=== PATIENT | male | born 1990 | race African-American/Black ===

== ENCOUNTER 2020-08-10 16:37 | Emergency (ER) | payer OTHER, MEDICAID ==
[~2020-08-10] VITALS: Ht 175.3 cm; Wt 70.4 kg
[2020-08-10] MEDS ORDERED: IBUPROFEN 200 MG TABLET. PO ONE (17:30)
[2020-08-10] MEDS ORDERED: IBUP-1007 PO (17:30)
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
[2020-08-10 17:32] VITALS: BP 120/65
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
[2020-08-11] MEDS ORDERED: METH-38 PO (00:23)
== END 2020-08-10 18:32 | disposition home or self-care (01) ==
LOC: ER 16:37
DX: G89.11 Acute pain due to trauma (principal); M54.5 Low back pain; M54.2 Cervicalgia; Z98.890 Other specified postprocedural states; Z87.891 Personal history of nicotine dependence; V79.9XXA Bus occupant (driver) (passenger) injured in unspecified traffic accident, initial encounter; Y93.89 Activity, other specified; Y92.413 State road as the place of occurrence of the external cause; Y99.8 Other external cause status
CPT/HCPCS: 72128; 72131; 99285

== ENCOUNTER 2020-08-31 18:08 | Inpatient (IN) | payer SELFPAY ==
[~2020-08-31] VITALS: Ht 175.3 cm; Wt 68.0 kg
[~2020-08-31 18:08] MED LIST: IBUP-1007 PO; METH-38 PO
[2020-08-31 20:26] LABS: BASO % 0 % (0-3); EOS % 0 % (0-3); HEMATOCRIT 50.5 % (39.0-53.0); HEMOGLOBIN 17.6 g/dL (13.0-17.5); LYMPH % 9 % (24-48); MEAN CORPUSCULAR HEMOGLOBIN 32 pg (25-35); MEAN CORPUSCULAR HGB CONC 35 g/dL (31-37); MEAN CORPUSCULAR VOLUME 91 fL (79-100); MONO % 17 % (0-9); NEUT # 8.7 x10^3/uL (1.8-7.7); NEUT % 74 % (31-73); PLATELET COUNT 224 x10^3/uL (140-400); RED BLOOD COUNT 5.54 x10^6/uL (4.30-5.70); RED CELL DISTRIBUTION WIDTH 13.9 % (11.5-14.5); WHITE BLOOD COUNT 11.7 x10^3/uL (4.0-11.0)
[2020-08-31 20:35] LABS: CALCIUM 8.8 mg/dL (8.5-10.1); CREATININE 1.8 mg/dL (0.7-1.3); GFR 54.6; POTASSIUM 4.8 mmol/L (3.5-5.1)
[2020-08-31 20:41] LABS: ALBUMIN 4.9 g/dL (3.4-5.0); ALBUMIN/GLOBULIN RATIO 1.2 (1.0-1.7); TOTAL BILIRUBIN 1.1 mg/dL (0.2-1.0); TOTAL PROTEIN 8.9 g/dL (6.4-8.2)
[2020-08-31] MEDS ORDERED: MORPHINE SULFATE 4 MG/ML VIAL. IV ONE ×2 (20:45→22:30)
--- NOTE | 2020-08-31 20:53 | RAD ---
Exam: Right tibia and fibula 2 views INDICATION: Pain TECHNIQUE: Frontal and lateral views of the right tibia and fibula Comparisons: None FINDINGS: Metallic metallic fragments are noted soft tissues of the lower leg. Bone mineralization is normal. N o acute or healed fractures. Joint spaces are well-maintained. IMPRESSION: No acute osseous abnormality. Numerous metallic fragments in the soft tissues of the lower leg. Electronically signed by: Nhi Sands MD (08/31/2020 8:51 PM) [facility]
[2020-08-31 20:59] LABS: % BASOS 1 % (0-3); % MONOS 16 % (0-10); PLT ESTIMATE ADEQUATE (ADEQUATE)
[2020-08-31 21:00] LABS: % LYMPHS 13 % (24-48); % SEGS 70 % (35-66)
--- NOTE | 2020-08-31 21:33 | RAD ---
EXAM: Right lower extremity venous Doppler sonogram. HISTORY: Pain and swelling. TECHNIQUE: Marina scale and color Doppler sonographic evaluation of the right lower extremity veins wit h spectral waveform analysis was performed. FINDINGS: There is normal color flow, normal compressibility and there are normal spectral waveforms in the common femoral, superficial femoral, popliteal, posterior tibial and greater saphenous veins. The peroneal veins are not well seen due to small caliber. IMPRESSION: No Doppler evidence of lower extremity deep venous thrombosis. Electronically signed by: Portia Ruvalcaba MD (08/31/2020 9:31 PM) [facility]
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
[2020-08-31] MEDS ORDERED: PIP/TAZO PER PHARMACY MC PRN (22:30)
[2020-08-31] MEDS ORDERED: CONTRAST GIVEN. MC PRN (22:30)
[2020-08-31] MEDS ORDERED: IV NORMAL SALINE 1000ML BAG 1,000 ML IV ONE (22:30)
[2020-08-31] MEDS ORDERED: VANCOMYCIN 1.75 GM in IV NORMAL SALINE 500ML BAG 500 ML IV ONE (23:00)
[2020-08-31] MEDS ORDERED: IOHEXOL 300 MG/ML 100ML VIAL. IV ONE (23:00)
--- NOTE | 2020-08-31 23:14 | RAD ---
Exam: CT right lower extremity INDICATION: Calf pain and swelling after fall TECHNIQUE: Sequential axial images through the right lower leg obtained following the administration of 75 mL of Omni 300 IV contrast. Sagittal and coronal reformatted images were reconstructed from the axial data and reviewed. Comparisons: None FINDINGS: There is mild hypoenhancement and edema involving the superficial compartment of the posterior lower leg. There is mild adjacent stranding also noted. Normal Enhancing vessels are noted throughout the s uperficial compartment. Fixation device at the right distal femur is noted. Bone mineralization is normal. No acute fracture. There is numerous metallic foreign bodies noted within the lower leg solitary invaginated into the d istal tibial diaphysis. IMPRESSION: 1. Hypoenhancement edema involving the superficial compartment of the posterior lower leg, which is nonspecific. Correlate for clinical signs of compartment syndrome. 2. No acute fracture. Exposure: One or more of the following in the visualized dose reduction techniques were utilized for this examination: 1. Automated exposure control 2. Adjustment of the MA and/or KV according to patient size 3. Use of iterative of reconstructive technique FOR INTERNAL CODING PURPOSES Critical result: Findings discussed with Xavier Patricia at 08/31/2020 11:10 PM. RESULT CODE: (C) Electronically signed by: Nhi Sands MD (08/31/2020 11:11 PM) [facility]
[2020-08-31] MEDS: PIPERACILLIN/TAZOBACTAM 3.375 GM in IV NORMAL SALINE 50ML 50 ML IV SCH (23:20)
[2020-09-01] VITALS (7 sets, daily range): BP systolic 131–161; BP diastolic 94–113
[2020-09-01] MEDS ORDERED: IV NORMAL SALINE 1000ML BAG 1,000 ML IV ONE ×2 (00:15)
[2020-09-01] MEDS: VANCOMYCIN PER PHARMACY MC PRN (01:12)
--- NOTE | 2020-09-01 01:13 | NUR ---
Pharmacy Vancomycin Dosing Note S:Consulted to monitor and dose vancomycin started 08/31/20. O:ANA LAURA RODRIGUEZ is a 30 year old M with Cellulitis . Height: 5 feet, 9 inches Weight: 72.7 kg [place] Body Weight: 70.70 Adjusted Body Weight: 71.50 Dosing Weight: Actual Other Antibiotics: ZOSYN 3.375 GM Q6H LABS: Last BUN: 23 Last Creatinine: 1.8 Creatinine Clearance: 62 mL/min Last WBC: 11.7 Last Procalcitonin: Tmax (past 24 hours): Microbiology: I/O: Drug Levels: Last level: on at Last dose given 08/31/20 at 2300 Vancomycin Dosing: Loading Dose: 1750 mg x1 Dosing Weight: Actual Target Trough: 10-20 A: Based on: WT AND CRCL P: 1. Begin Vancomycin 1000 mg IV q12h 2. Follow up Trough level on 09/02/20 at 1030 3. Pharmacy will continue to monitor, follow and adjust therapy as needed. JADE ZAIDI RPH, 09/01/20 0113 Signed: 09/01/20 at 0113 by JADE ZAIDI RPH PHA
[2020-09-01] MEDS: MORPHINE SULFATE 4 MG/ML VIAL. IV PRN ×5 (03:03→22:17)
[2020-09-01] MEDS: PIPERACILLIN/TAZOBACTAM 3.375 GM in IV NORMAL SALINE 50ML 50 ML IV SCH ×3 (06:13→19:14)
[2020-09-01] MEDS ORDERED: PROCHLORPERAZINE 10 MG/2 ML VIAL. IV PRN (10:00)
[2020-09-01] MEDS ORDERED: ONDANSETRON PF 4 MG/2 ML VIAL. IV PRN (10:00)
[2020-09-01] MEDS ORDERED: IV RINGERS,LACTATED 1000ML 1,000 ML IV SCH (10:00)
[2020-09-01] MEDS ORDERED: MORPHINE SULFATE 2 MG/ML VIAL. IV PRN (10:00)
[2020-09-01] MEDS ORDERED: HYDROmorphone 2 MG/ML VIAL IV PRN (10:00)
[2020-09-01] MEDS ORDERED: fentaNYL PF VIAL 100 MCG/2 ML VIAL IV PRN ×2 (10:00)
--- NOTE | 2020-09-01 10:31 | NUR ---
SW following. Discussed with RN, pt from home, room air, regular diet. Pt being put on the surgery schedule - unsure of when. SW will continue to follow.
[2020-09-01] MEDS: VANCOMYCIN 1 GM in IV NORMAL SALINE 250ML 250 ML IV SCH ×2 (11:00→23:08)
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
[2020-09-01] MEDS: SODIUM BICARBONATE VIAL 150 MEQ in IV STERILE WATER 1,000 ML IV SCH ×3 (15:57→23:08)
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
[2020-09-01] MEDS: LACTOBACILLUS RHAMNOSUS GG 1 CAPSULE. PO SCH (19:39)
--- NOTE | 2020-09-01 20:17 | NUR ---
Patient was uncooperative all day. He was given directions from Dr. Carcamo not to eat anything and patient showed understanding of the directions. Patient still ate breakfast and lunch. Patient was made aware that we needed a urine sample but said throughout the day that he didn't have to go. After many attempts of trying to get the urine sample the Nursing Foam Rubber Fabricator, Dr Carcamo, and security all met him in his room to explain to him why we needed the urine sample. Patient agreed to have a catheter put in place by the Nursing Foam Rubber Fabricator. While attempting to insert the catheter the patient pulled it out. Nursing Foam Rubber Fabricator later told me that Dr Carcamo said to let the patient drink all he needs until midnight and to continue running fluids at 200 mL/hr and to provide an observed urine sample. These instructions were given to patient and nurse at shift change.
[2020-09-02] MEDS: PIPERACILLIN/TAZOBACTAM 3.375 GM in IV NORMAL SALINE 50ML 50 ML IV SCH ×4 (00:11→16:37)
--- NOTE | 2020-09-02 00:19 | NUR ---
Patient continues to deny need to urinate. Patient instructed to call staff when ready to use urinal for observed sample; patient verbalized understanding.
[2020-09-02] MEDS: MORPHINE SULFATE 4 MG/ML VIAL. IV PRN ×7 (00:30→21:32)
[2020-09-02 03:26] VITALS: BP 149/95
[2020-09-02] MEDS: SODIUM BICARBONATE VIAL 150 MEQ in IV STERILE WATER 1,000 ML IV SCH ×2 (05:51→09:05)
[2020-09-02 06:12] LABS: BARBITURATES NEG (NEG); BENZODIAZEPINES NEG (NEG); CANNABINOIDS NEG (NEG); COCAINE NEG (NEG); METHADONE NEG (NEG); OPIATES POS (NEG); PHENCYCLIDINE NEG (NEG)
[2020-09-02 06:15] LABS: AMPHETAMINE/METHAMPHETAMINE NEG (NEG)
[2020-09-02 07:00] VITALS: BP 137/92
[2020-09-02] MEDS: LACTOBACILLUS RHAMNOSUS GG 1 CAPSULE. PO SCH ×2 (08:07→21:32)
[2020-09-02 09:21] LABS: BASO % 0 % (0-3); EOS % 0 % (0-3); HEMATOCRIT 42.1 % (39.0-53.0); HEMOGLOBIN 14.5 g/dL (13.0-17.5); LYMPH # 1.3 x10^3/uL (1.0-4.8); LYMPH % 17 % (24-48); MEAN CORPUSCULAR HEMOGLOBIN 32 pg (25-35); MEAN CORPUSCULAR HGB CONC 34 g/dL (31-37); MEAN CORPUSCULAR VOLUME 92 fL (79-100); MONO # 1.5 x10^3/uL (0.0-1.1); MONO % 19 % (0-9); NEUT # 4.9 x10^3/uL (1.8-7.7); NEUT % 64 % (31-73); PLATELET COUNT 166 x10^3/uL (140-400); RED CELL DISTRIBUTION WIDTH 13.6 % (11.5-14.5); WHITE BLOOD COUNT 7.7 x10^3/uL (4.0-11.0)
[2020-09-02 09:41] LABS: CALCIUM 8.3 mg/dL (8.5-10.1); GFR 48.4; POTASSIUM 3.6 mmol/L (3.5-5.1)
--- NOTE | 2020-09-02 09:59 | NUR ---
SW following. Discussed with RN, pt from home with room mate, room air, regular diet, rapid COVID-19 negative. Pt having surgery today at 1500 for an I&D. SW will continue to follow.
[2020-09-02 11:00] VITALS: BP 141/94
[2020-09-02 11:05] LABS: VANC TR 12.7 mcg/mL (10.0-20.0)
[2020-09-02 11:14] LABS: GFR 48.4
[2020-09-02] MEDS: VANCOMYCIN 1 GM in IV NORMAL SALINE 250ML 250 ML IV SCH ×2 (11:37→23:03)
[2020-09-02] MEDS: IV NORMAL SALINE 1000ML BAG 1,000 ML IV SCH ×4 (13:12→23:45)
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
[2020-09-02] MEDS: VANCOMYCIN PER PHARMACY MC PRN (14:18)
--- NOTE | 2020-09-02 14:18 | NUR ---
Pharmacy Vancomycin Dosing Note S: Consulted to monitor and dose vancomycin started 08/31/20. O: ANA LAURA RODRIGUEZ is a 30 year old M with cellulitis. Other Antibiotics: ZOSYN 3.375 GM Q6H LABS: Last BUN: 23 Last Creatinine: 22 Creatinine Clearance: 52 mL/min Last WBC: 7.7 Tmax (past 24 hours): 98.1 Microbiology: none I/O: I: 4180; O: 1 void Drug Levels: Last Trough level: 12.7 on 09/02/20 at 1030 Last dose given 09/01/20 at 2308 Vancomycin Dosing: Dosing Weight: Actual Target Trough: 10-20 A: Patient is receiving vancomycin 1000 mg IV q12hrs. A trough of 12.7 mcg/ml is within goal range for cellulitis. Patient's SCr remains unchanged from baseline, with an eCrCl of ~ 52 ml/min. P: 1. Continue Vancomycin 1000 mg IV q12h 2. Follow up trough in 5 - 7 days or sooner if renal function significantly changes. 3. Pharmacy will continue to monitor, follow and adjust therapy as needed. ALO LAWRENCE [facility], 09/02/20 1965
[2020-09-02] MEDS ORDERED: fentaNYL PF VIAL 100 MCG/2 ML VIAL ONE ×2 (14:31→16:00)
[2020-09-02] MEDS ORDERED: PHENYLEPHRINE in 0.9% NACL PF 1 MG/10 ML SYRINGE. IV ONE (14:34)
[2020-09-02] MEDS ORDERED: DEXAMETHASONE SOD PHOS 4 MG/ML VIAL ONE (14:34)
[2020-09-02] MEDS ORDERED: LIDOCAINE 2% PF 5 ML VIAL. ONE (14:34)
[2020-09-02] MEDS ORDERED: ONDANSETRON PF 4 MG/2 ML VIAL. ONE (14:34)
[2020-09-02] MEDS ORDERED: MIDAZOLAM HCL/PF 2 MG/2 ML VIAL. ONE (14:42)
[2020-09-02 15:00] VITALS: BP 136/92
--- NOTE | 2020-09-02 15:07 | PDOC ---
PROGRESS NOTES Date of Service DATE: 09/02/20 TIME: 15:00 Subjective Subjective Problems overnight: Delayed entry from approximately 5 PM 09/01/2020. Patient was scheduled for surgery this morning and given instructions not to eat or drink unfortunately he ate a hamburger and surgery was delayed till afternoon because of his n.p.o. status 09/01/2020. He was also observed on admission to be acting strangely and suspected under the influence as well as when he came down at noon time today based on reports of several different healthcare personnel. A urine toxicology screen was ordered in the emergency department but he reportedly gave a glass of drinking water instead of a urine sample and refused to give urine all day today. I was in with him today with the nursing supervisor varnish and his floor nurse to discuss the need for a toxicology screen as he could have an adverse reaction under anesthesia. He initially refused for about a half an hour but eventually agreed to submit to a straight catheterization. Objective Vital Signs Vital Signs Date Time Temp Pulse Resp B/P (MAP) Pulse Ox O2 Delivery O2 Flow Rate FiO2 09/02/20 11:00 98.1 99 16 141/94 (110) 96 Nasal Cannula 98.1 Physical Exam On exam his leg is still mildly swollen and the superior portion of his calf medially compartments appear all soft and he does have pain on extremes of motion of the ankle and toes but does not appear to clinically be any compartment syndrome his distal pulses sensation and motor function are all intact and even over the superficial posterior compartment of concern he does not seem to have a tense effusion. Likewise no knee effusion at all he can move the knee and ankle and has good stability Labs Laboratory Tests Test 08/31/20 20:17 09/01/20 10:42 09/02/20 05:50 09/02/20 08:17 White Blood Count 11.7 x10^3/uL (4.0-11.0) 7.7 x10^3/uL (4.0-11.0) Red Blood Count 5.54 x10^6/uL (4.30-5.70) 4.60 x10^6/uL (4.30-5.70) Hemoglobin 17.6 g/dL (13.0-17.5) 14.5 g/dL (13.0-17.5) Hematocrit 50.5 % (39.0-53.0) 42.1 % (39.0-53.0) Mean Corpuscular Volume 91 fL (79-100) 92 fL (79-100) Mean Corpuscular Hemoglobin 32 pg (25-35) 32 pg (25-35) Mean Corpuscular Hemoglobin Concent 35 g/dL (31-37) 34 g/dL (31-37) Red Cell Distribution Width 13.9 % (11.5-14.5) 13.6 % (11.5-14.5) Platelet Count 224 x10^3/uL (140-400) 166 x10^3/uL (140-400) Neutrophils (%) (Auto) 74 % (31-73) 64 % (31-73) Lymphocytes (%) (Auto) 9 % (24-48) 17 % (24-48) Monocytes (%) (Auto) 17 % (0-9) 19 % (0-9) Eosinophils (%) (Auto) 0 % (0-3) 0 % (0-3) Basophils (%) (Auto) 0 % (0-3) 0 % (0-3) Neutrophils # (Auto) 8.7 x10^3/uL (1.8-7.7) 4.9 x10^3/uL (1.8-7.7) Lymphocytes # (Auto) 1.0 x10^3/uL (1.0-4.8) 1.3 x10^3/uL (1.0-4.8) Monocytes # (Auto) 2.0 x10^3/uL (0.0-1.1) 1.5 x10^3/uL (0.0-1.1) Eosinophils # (Auto) 0.0 x10^3/uL (0.0-0.7) 0.0 x10^3/uL (0.0-0.7) Basophils # (Auto) 0.0 x10^3/uL (0.0-0.2) 0.0 x10^3/uL (0.0-0.2) Segmented Neutrophils % 70 % (35-66) Lymphocytes % 13 % (24-48) Monocytes % 16 % (0-10) Basophils % 1 % (0-3) Platelet Estimate Adequate (ADEQUATE) Sodium Level 135 mmol/L (136-145) 142 mmol/L (136-145) Potassium Level 4.8 mmol/L (3.5-5.1) 3.6 mmol/L (3.5-5.1) Chloride Level 97 mmol/L (98-107) 104 mmol/L (98-107) Carbon Dioxide Level 24 mmol/L (21-32) 32 mmol/L (21-32) Anion Gap 14 (6-14) 6 (6-14) Blood Urea Nitrogen 23 mg/dL (8-26) 11 mg/dL (8-26) Creatinine 1.8 mg/dL (0.7-1.3) 2.0 mg/dL (0.7-1.3) Estimated GFR (Cockcroft-Gault) 54.6 48.4 BUN/Creatinine Ratio 13 (6-20) Glucose Level 96 mg/dL (70-99) 85 mg/dL (70-99) Calcium Level 8.8 mg/dL (8.5-10.1) 8.3 mg/dL (8.5-10.1) Total Bilirubin 1.1 mg/dL (0.2-1.0) Aspartate Amino Transf (AST/SGOT) 661 U/L (15-37) Alanine Aminotransferase (ALT/SGPT) 112 U/L (16-63) Alkaline Phosphatase 112 U/L (46-116) Creatine Kinase 03231 U/L (39-308) 24445 U/L (39-308) C-Reactive Protein, Quantitative 6.9 mg/L (0-3.3) Total Protein 8.9 g/dL (6.4-8.2) Albumin 4.9 g/dL (3.4-5.0) Albumin/Globulin Ratio 1.2 (1.0-1.7) SARS-CoV-2 Antigen (Rapid) Negative (NEGATIVE) Urine Opiates Screen Pos (NEG) Urine Methadone Screen Neg (NEG) Urine Barbiturates Neg (NEG) Urine Phencyclidine Screen Neg (NEG) Urine Amphetamine/Methamphetamine Neg (NEG) Urine Benzodiazepines Screen Neg (NEG) Urine Cocaine Screen Neg (NEG) Urine Cannabinoids Screen Neg (NEG) Urine Ethyl Alcohol Neg (NEG) Test 09/02/20 10:31 Creatinine 2.0 mg/dL (0.7-1.3) Estimated GFR (Cockcroft-Gault) 48.4 Vancomycin Level Trough 12.7 mcg/mL (10.0-20.0) Vancomycin Last Dose Date 09/01/2020 Vancomycin Last Dose Time 2300 Laboratory Tests Test 09/02/20 05:50 09/02/20 08:17 09/02/20 10:31 Urine Opiates Screen Pos (NEG) Urine Methadone Screen Neg (NEG) Urine Barbiturates Neg (NEG) Urine Phencyclidine Screen Neg (NEG) Urine Amphetamine/Methamphetamine Neg (NEG) Urine Benzodiazepines Screen Neg (NEG) Urine Cocaine Screen Neg (NEG) Urine Cannabinoids Screen Neg (NEG) Urine Ethyl Alcohol Neg (NEG) White Blood Count 7.7 x10^3/uL (4.0-11.0) Red Blood Count 4.60 x10^6/uL (4.30-5.70) Hemoglobin 14.5 g/dL (13.0-17.5) Hematocrit 42.1 % (39.0-53.0) Mean Corpuscular Volume 92 fL (79-100) Mean Corpuscular Hemoglobin 32 pg (25-35) Mean Corpuscular Hemoglobin Concent 34 g/dL (31-37) Red Cell Distribution Width 13.6 % (11.5-14.5) Platelet Count 166 x10^3/uL (140-400) Neutrophils (%) (Auto) 64 % (31-73) Lymphocytes (%) (Auto) 17 % (24-48) Monocytes (%) (Auto) 19 % (0-9) Eosinophils (%) (Auto) 0 % (0-3) Basophils (%) (Auto) 0 % (0-3) Neutrophils # (Auto) 4.9 x10^3/uL (1.8-7.7) Lymphocytes # (Auto) 1.3 x10^3/uL (1.0-4.8) Monocytes # (Auto) 1.5 x10^3/uL (0.0-1.1) Eosinophils # (Auto) 0.0 x10^3/uL (0.0-0.7) Basophils # (Auto) 0.0 x10^3/uL (0.0-0.2) Sodium Level 142 mmol/L (136-145) Potassium Level 3.6 mmol/L (3.5-5.1) Chloride Level 104 mmol/L (98-107) Carbon Dioxide Level 32 mmol/L (21-32) Anion Gap 6 (6-14) Blood Urea Nitrogen 11 mg/dL (8-26) Creatinine 2.0 mg/dL (0.7-1.3) 2.0 mg/dL (0.7-1.3) Estimated GFR (Cockcroft-Gault) 48.4 48.4 Glucose Level 85 mg/dL (70-99) Calcium Level 8.3 mg/dL (8.5-10.1) Creatine Kinase 77871 U/L (39-308) Vancomycin Level Trough 12.7 mcg/mL (10.0-20.0) Vancomycin Last Dose Date 09/01/2020 Vancomycin Last Dose Time 2300 Assessment Assessment Right calf swelling status post a reported fall "running from a spider". He was very resistant to cooperating with any type of drug screen ordered prior to anesthesia or maintaining his n.p.o. status. Plan Plan of Care I went over with him and a discussion with our anesthesiologist that there is significant concern for some drug use on his part based on what was observed and he could be at very high risk for potential interactions or complications with anesthesia if there is other drug use present. He was attempted straight catheterization but clenched down to prevent completion of the catheterization and based on his previous refusal to submit for urinalysis Dr. Wilkinson from anesthesia and myself collaborated and concluded that the risk of taking him under anesthesia given the inability to obtain a toxicology screen would potentially be more dangerous than his current condition with his leg and therefore surgery is going to be put off until the toxicology screen can be reasonably accomplished, likely overnight with surgery scheduled for tomorrow. Patient was informed of this Justicifation of Admission Dx: Justifications for Admission: Justification of Admission Dx: N/A JOE CANALES MD Sep 02, 2020 15:07
[2020-09-02] MEDS ORDERED: BUPIVACAINE MPF 0.5% 30 ML VIAL. ONE (15:21)
[2020-09-02] MEDS ORDERED: SEVOFLURANE 16 TO 30 MINUTES. IH ONE (15:24)
--- NOTE | 2020-09-02 15:40 | PDOC4 ---
Operative Note Operative Note Date of surgery: 09/02/2020 Preoperative diagnosis: Right proximal calf swelling/pain, concern for possible infection Postoperative diagnosis: Right proximal calf swelling with no evidence of ab scess, muscle and other tissue was well perfused and viable Operative procedure: Exploration of right proximal medial calf with release of fascia and intraoperative cultures Surgeon: Dona Broadcast Producer: Parveen hunt Anesthesia: General Estimated blood loss: 20 cc Complications: None Specimens: Intraoperative culture swab right calf for aerobic anaerobic cultures and Gram stain Operative indications: Please see my dictated orthopedic consultation for detailed operative indications and note that we reviewed preoperatively the plan to open up and explore the right calf for potential infection hematoma resulting from a fall prior to admission with some irregularities in the superficial posterior compartment of the calf on CT scanning. He remained painful despite rest IV antibiotics and did have significant swelling without findings of compartment syndrome. We talked about the possibility of infection nerve or blood vessel damage medical or other anesthetic complications with anesthesia in particular and he agrees to proceed with surgical evaluation and treatment for exploration of the right calf Operative text: Patient was identified procedure verified patient placed in the supine position on the operating table. After adequate amounts of general anesthesia were administered the right lower extremity was prepped and draped in standard sterile fashion a thigh tourniquet was placed but not inflated. After timeout was performed patient procedure identified and verified an incision was made over the posterior medial aspect of the proximal calf centered over the area where he had the most swelling. No abnormalities noted in the subcutaneous area muscle fascia was divided in while the muscle was somewhat swollen it was well perfused and viable. No evidence of fluid collection or abscess was noted blunt dissection carried out around the superficial posterior compartment and a swab culture was obtained. Deep posterior compartment was released and explored as well and no evidence of compartment syndrome in either location. The muscular fascia was divided proximally and distally from the incision and after thorough irrigation carried out normal saline solution incision closed with buried Vicryl suture and skin closure with saurabh a sterile mildly compressive dressing was placed and patient was returned to recovery room in stable condition having tolerated procedure well. Parveen hunt was present for the procedure assisted in the prepping draping retraction and dressings JOE CANALES MD Sep 02, 2020 15:40
[2020-09-02] MEDS ORDERED: fentaNYL PF VIAL 100 MCG/2 ML VIAL IVP ONE ×2 (16:15→16:30)
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
--- NOTE | 2020-09-02 17:24 | NUR ---
Bladder scan done on patient, 704 urine is in bladder. Patient urinated in urinal, approximately 400mL. Re-scanned bladder and it showed 184mL retained in bladder, will continue to monitor.
[2020-09-02 17:53] LABS: BILIRUBIN,URINE NEGATIVE (NEG); CLARITY,URINE CLEAR; COLOR,URINE YELLOW; NITRITE,URINE NEGATIVE (NEG); PH,URINE 7.5 (<5.0-8.0); PROTEIN,URINE NEGATIVE (NEG-TRACE); UROBILINOGEN,URINE 0.2 mg/dL (0.2 mg/dL)
[2020-09-02 18:06] LABS: BACTERIA,URINE 0 /HPF (0-FEW); RBC,URINE 0 /HPF (0-2); WBC,URINE 0 /HPF (0-4)
[2020-09-02 19:20] VITALS: BP 146/95
[2020-09-02 23:23] VITALS: BP 134/73
[2020-09-03] MEDS: PIPERACILLIN/TAZOBACTAM 3.375 GM in IV NORMAL SALINE 50ML 50 ML IV SCH ×4 (00:53→13:16)
[2020-09-03] MEDS: MORPHINE SULFATE 4 MG/ML VIAL. IV PRN ×3 (00:59→05:44)
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
[2020-09-03] MEDS: HYDROcodone/APAP 5/325MG 1 TAB TABLET PO PRN ×2 (02:19→10:30)
--- NOTE | 2020-09-03 02:23 | NUR ---
This RN and Sabina RN went to patients room to administer hydrocodone. Patient was in the bathroom urinating. Patient was educated on using urinal to keep a strict count of urine out put. Patient refused. Patient stated he did not want to do that. Patient continued to urinate. Patient finished and returned to bed. Patient was handed medication cup with hydrocodone in cup. patient "accidentally" dropped cup in bed. Patient stated he did not see the pill. This RN picked up pill from bed and handed pill to patient. Patient then asked Sabina RN to get patient water. Patient was given fresh water. Patient then put pill in mouth and appeared to have swallowed pill. Will continue to monitor.
[2020-09-03 03:03] VITALS: BP 149/99
--- NOTE | 2020-09-03 03:13 | NUR ---
Patient called for morphine dose. This RN and Estephanie RN administered MS dose. Patient stated to RN " you have to give it here and then put the order one thing in fast. " Patient was told that MS dose will be given appropriately and flush would not be administered fast. Patient stated " No, it does not work if you do it up there. I am telling you I can't feel it when its up there. That is not even connected to me." Patient was told dose would be given appropriately or not at all. Patient asked when this RN would stop being his RN. Patient was told that next shift comes on at 7 am. Patient refused pulse checks. Will continue to monitor.
--- NOTE | 2020-09-03 05:00 | NUR ---
refused Addendum: 09/03/20 at 0516 by HODA ROSALES RN RN Amended: Links added.
--- NOTE | 2020-09-03 05:17 | NUR ---
refused Addendum: 09/03/20 at 0517 by HODA ROSALES RN RN Amended: Links added.
[2020-09-03] MEDS: IV NORMAL SALINE 1000ML BAG 1,000 ML IV SCH ×4 (05:23→13:09)
[2020-09-03 07:00] VITALS: BP 139/81
[2020-09-03] MEDS ORDERED: MORPHINE SULFATE 4 MG/ML VIAL. IV PRN (08:00)
[2020-09-03] MEDS: LACTOBACILLUS RHAMNOSUS GG 1 CAPSULE. PO SCH (08:36)
--- NOTE | 2020-09-03 09:50 | NUR ---
SW following. Discussed with RN, pt from home with room mate, room air, regular diet, COVID-19 negative, IV abx. Pt had an I&D on 09/02/20, has been refusing checks/ requests from RN over night. Pt does not have any medicaid qualifiers at this time, per Med Assist. SW will continue to follow.
--- NOTE | 2020-09-03 10:00 | NUR ---
Patient refused. Addendum: 09/03/20 at 1142 by DMITRI HANSEN RN Amended: Links added.
--- NOTE | 2020-09-03 10:30 | PDOC ---
DATE OF SERVICE DATE: 09/03/20 TIME: 10:25 SUBJECTIVE ROS Refusing bladder scan , darden OBJECTIVE Vital Signs Vital Signs Date Time Temp Pulse Resp B/P (MAP) Pulse Ox O2 Delivery O2 Flow Rate FiO2 09/03/20 07:27 Room Air 09/03/20 07:00 98.6 86 19 139/81 (100) 97 98.6 09/02/20 15:33 10 I & 0 Intake and Output 09/03/20 07:00 Intake Total 560 ml Output Total 20 ml Balance 540 ml Intake Oral 360 ml IV Total 200 ml Output Urine Total 0 ml Estimated Blood Loss 20 ml # Voids 4 PHYSICAL EXAM Physical Exam GEN.: No apparent distress. Alert and oriented. HEENT: Head is normocephalic, atraumatic, OM dry NECK: Supple. LUNGS: Clear to auscultation. HEART: RRR, S1, S2 present. Peripheral pulses intact ABDOMEN: Soft, nontender. Positive bowel sounds. NEUROLOGIC: Normal speech, normal tone PSYCHIATRIC: Normal affect, normal mood. SKIN: No rash EXTREMITIES: right lower extremity reveals significant swelling on the proximal calf on the right side compared to the left. No darden DIAGNOSIS/ASSESSMENT Assessment & Plan DANIELA - ATN 2/2 Rhabdo , worsening CK Aggressive hydration , IV NS , Last evening Bladder scan done with Urine of 700 + , and PVR 180's Pt refusing Darden and prn bladder scans, UOP not recorded ,Labs pending , Strict I/O Monitor closely, supportive care , avoid nephrotoxins ,UA unremarkabe Rhabdomyolysis -Labs pending, management as above as above History of reported fall. Right leg pain, swelling and erythema- per Ortho r/o compartment syndrome ,suspect cellulitis Drug use- Pt denies, UDS positive Hyponatremia - resolved COMMENT/RELEVANT DATA Meds Current Medications Medications (Trade) Dose Ordered Sig/Cat Start Time Stop Time Status Last Admin Dose Admin Acetaminophen/ Hydrocodone Bitart (Lortab 5/325) 1 tab PRN Q4HRS PRN 09/03/20 02:15 09/03/20 02:19 1 TAB Bupivacaine HCl (Sensorcaine Mpf 0.5%) 30 ml STK-MED ONCE 09/02/20 15:21 09/02/20 15:22 DC 09/02/20 15:14 10 ML Dexamethasone Sodium Phosphate (Decadron) 4 mg STK-MED ONCE 09/02/20 14:34 09/02/20 14:35 DC Fentanyl Citrate (Fentanyl 2ml Vial) 50 mcg 1X ONCE 09/02/20 16:30 09/02/20 16:31 DC 09/02/20 16:20 50 MCG Hydromorphone HCl (Dilaudid) 0.5 mg PRN Q10MIN PRN 09/01/20 10:00 09/02/20 09:59 DC Info (CONTRAST GIVEN -- Rx MONITORING) 1 each PRN DAILY PRN 08/31/20 22:30 09/02/20 22:29 DC Iohexol (Omnipaque 300 Mg/ml) 75 ml 1X ONCE 08/31/20 23:00 08/31/20 23:01 DC 08/31/20 22:42 75 ML Lactobacillus Rhamnosus (Culturelle) 1 cap BID 09/01/20 21:00 09/03/20 08:36 1 CAP Lidocaine HCl (Lidocaine Pf 2% Vial) 5 ml STK-MED ONCE 09/02/20 14:34 09/02/20 14:35 DC Midazolam HCl (Versed) 2 mg STK-MED ONCE 09/02/20 14:42 09/02/20 14:43 DC Morphine Sulfate (Morphine Sulfate) 4 mg PRN Q4HRS PRN 09/03/20 08:00 09/03/20 08:37 4 MG Ondansetron HCl (Zofran) 4 mg STK-MED ONCE 09/02/20 14:34 09/02/20 14:35 DC Phenylephrine HCl (PHENYLEPHRINE in 0.9% NACL PF) 1 mg STK-MED ONCE 09/02/20 14:34 09/02/20 14:35 DC Piperacillin Sod/ Tazobactam Sod (Zosyn Per Pharmacy) 1 each PRN DAILY PRN 08/31/20 22:30 Piperacillin Sod/ Tazobactam Sod 3.375 gm/Sodium Chloride 50 ml @ 100 mls/hr Q6HRS 08/31/20 23:00 09/03/20 05:23 100 MLS/HR Prochlorperazine Edisylate (Compazine) 5 mg PACU PRN PRN 09/01/20 10:00 09/02/20 09:59 DC Ringer's Solution 1,000 ml @ 30 mls/hr Q24H 09/01/20 10:00 09/01/20 21:59 DC 09/01/20 11:32 30 MLS/HR Sevoflurane (Ultane) 15 ml STK-MED ONCE 09/02/20 15:24 09/02/20 15:24 DC Sodium Bicarbonate 150 meq/Sterile Water 1,150 ml @ 200 mls/hr Q5H45M 09/01/20 10:30 09/02/20 11:41 DC 09/02/20 09:05 200 MLS/HR Sodium Chloride 1,000 ml @ 250 mls/hr Q4H 09/02/20 11:45 09/03/20 08:40 250 MLS/HR Vancomycin HCl (Vanco Per Pharmacy) 1 each PRN DAILY PRN 08/31/20 22:30 09/02/20 14:18 1 EACH Vancomycin HCl (Vancomycin Trough Level) 1 each 1X ONCE 09/02/20 10:30 09/02/20 10:31 DC 09/02/20 10:30 1 EACH Vancomycin HCl 1.75 gm/Sodium Chloride 500 ml @ 250 mls/hr 1X ONCE 08/31/20 23:00 09/01/20 00:59 DC 08/31/20 23:20 250 MLS/HR Vancomycin HCl 1 gm/Sodium Chloride 250 ml @ 250 mls/hr Q12H 09/01/20 11:00 09/02/20 23:03 250 MLS/HR Lab Laboratory Tests Test 09/02/20 10:31 09/02/20 17:10 Creatinine 2.0 mg/dL (0.7-1.3) Estimated GFR (Cockcroft-Gault) 48.4 Vancomycin Level Trough 12.7 mcg/mL (10.0-20.0) Vancomycin Last Dose Date 09/01/2020 Vancomycin Last Dose Time 2300 Urine Collection Type Unknown Urine Color Yellow Urine Clarity Clear Urine pH 7.5 (<5.0-8.0) Urine Specific [place] <=1.005 (1.000-1.030) Urine Protein Negative mg/dL (NEG-TRACE) Urine Glucose (UA) Negative mg/dL (NEG) Urine Ketones (Stick) Negative mg/dL (NEG) Urine Blood Small (NEG) Urine Nitrite Negative (NEG) Urine Bilirubin Negative (NEG) Urine Urobilinogen Dipstick 0.2 mg/dL (0.2 mg/dL) Urine Leukocyte Esterase Negative (NEG) Urine RBC 0 /HPF (0-2) Urine WBC 0 /HPF (0-4) Urine Squamous Epithelial Cells Occ /LPF Urine Bacteria 0 /HPF (0-FEW) Results All relevant outside records, renal labs, imaging studies, telemetry/EKG's were reviewed. Justicifation of Admission Dx: Justifications for Admission: Justification of Admission Dx: N/A LORENZO ACE MD Sep 03, 2020 10:30
[2020-09-03] MEDS: VANCOMYCIN 1 GM in IV NORMAL SALINE 250ML 250 ML IV SCH (11:00)
--- NOTE | 2020-09-03 11:00 | NUR ---
Patient refused Addendum: 09/03/20 at 1143 by DMITRI HANSEN RN Amended: Links added.
--- NOTE | 2020-09-03 11:30 | NUR ---
Patient has been in the bathroom for over one hour. Patient is refusing to come out. Notified patient that he needs re-connected to his IVF and antibiotics. He stated "I want to talk to the employment case manager, I'm not doing anything else, I'm done with these fluids and antibiotics." Notified IDA Desouza to come speak to patient. Notified Dr. Tovar, he gave order to consult PAT team, notified Lyly. Patient is also refusing hourly pulses checks. Also continues to refuse to use urinal so newspaper writer can obtain accurate I&O, and is refusing darden catheter. Guy aware.
--- NOTE | 2020-09-03 11:43 | NUR ---
Patient refused Addendum: 09/03/20 at 1144 by DMITRI HANSEN RN Amended: Links added.
--- NOTE | 2020-09-03 12:21 | NUR ---
RN contacted IDA to advise pt is requesting to see SW. Per RN, pt has been staying in the bathroom for a significant period of time and will not come out, even for the IV abx. Pt reporting he needs a phone number. [facility] team consulted to see pt. IDA met with pt (pt remained in the bathroom but did open the door) pt reporting he needs to use the phone - SW explained there is a phone in his room. Pt made the same statement. Then stated he needs the phone number. IDA advised we can google the phone number and asked for information about the number needed. Pt replied "[place]" SW asked what kind of place this was so we can narrow down the number, pt would not give any other information and stated to "give me all the numbers." IDA went to google [place] and dozens of numbers came up for all around the country with nothing specific. SW went back to pt room to advise of search outcome, pt still would not provide any further information. Pt stated he can use the computer and he will know the number when he sees it - IDA advised pt he is not allowed in the nursing station. Pt then started talking about going to the lobby and someone down there will give him the number and he can use the phone down there. IDA advised pt he is unable to go to the lobby at this time. IDA noticed pt had a cell phone in his room - SW queried why he didn't look up the number on there, pt stated his phone had run out of battery. Pt gave permission for to take phone and charge in office. Phone currently charging in office - will return to pt when sufficiently charged. Timothy PACHECO) here to see pt. IDA will continue to follow. Addendum: 09/03/20 at 1343 by CAMMY PRIETO Timothy PACHECO) met with pt, pt denied and mental health dx, HI, SI. Pt stated he needs his phone so he can call somewhere and then he is leaving. Pt mentioned to Timothy about an aunt who had surgery today. SW provided pt's charged phone back. Timothy spoke with [facility] - pt does have a history of schizophrenia per [facility]. Pt has not taken meds for this since about 2013. RN trying to reach Dr. Tovar to have pt started on psych meds. IDA will continue to follow.
--- NOTE | 2020-09-03 13:02 | NUR ---
patient refused Addendum: 09/03/20 at 1302 by DMITRI HANSEN RN Amended: Links added.
--- NOTE | 2020-09-03 14:11 | NUR ---
patient refused Addendum: 09/03/20 at 1411 by DMITRI HANSEN RN Amended: Links added.
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
--- NOTE | 2020-09-03 15:12 | NUR ---
patient refused Addendum: 09/03/20 at 1513 by DMITRI HANSEN RN Amended: Links added.
--- NOTE | 2020-09-03 16:05 | NUR ---
patient refused Addendum: 09/03/20 at 1606 by DMITRI HANSEN RN Amended: Links added.
--- NOTE | 2020-09-03 17:16 | NUR ---
patient refused Addendum: 09/03/20 at 1716 by DMITRI HANSEN RN Amended: Links added.
--- NOTE | 2020-09-03 18:00 | NUR ---
patient refused Addendum: 09/03/20 at 1826 by DMITRI HANSEN RN Amended: Links added.
--- NOTE | 2020-09-03 19:18 | NUR ---
pt. left the hospital AMA this evening at 1912 by wheelchair. Security and staff escorted pt. downstairs.
--- NOTE | 2020-09-03 19:23 | NUR ---
Dr. Tovar and nursing car wash supervisor notified about AMA.
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
[2020-09-04] MEDS ORDERED: QUEtiapine 25 MG TABLET. PO SCH (09:00)
[2020-09-04] MEDS ORDERED: ARIPiprazole 2 MG TABLET PO SCH (09:00)
== END 2020-09-03 19:12 | disposition left against medical advice (07) | DRG 501 ==
LOC: ER 18:08 → 4 NORTH 23:54
PROVIDERS: ADMIT Internal Medicine; ATTEND Internal Medicine
PROC: 0KNS0ZZ Release Right Lower Leg Muscle, Open Approach (ICD-10-PCS; principal; 2020-09-02 15:00)
DX: M62.82 Rhabdomyolysis (principal); N17.9 Acute kidney failure, unspecified; E22.2 Syndrome of inappropriate secretion of antidiuretic hormone; L03.115 Cellulitis of right lower limb; F17.210 Nicotine dependence, cigarettes, uncomplicated; Z79.899 Other long term (current) drug therapy; R33.9 Retention of urine, unspecified; Z53.29 Procedure and treatment not carried out because of patient's decision for other reasons; Z20.822 Contact with and (suspected) exposure to COVID-19
CPT/HCPCS: 36415; 73590; 73701; 80048; 80053; 80202; 80307; 81001; 82550; 82565; 85007; 85025; 86140; 87071; 87075; 87426; 93971; 96361; 96365; 96375; 96376; 99285; A4314; J1100; J2250; J2270; J2370; J2405; J2543; J3010; J3370; J3490; J7030; J7040; J7050; J7120; Q9967; U0003; A4461; G0378